=== PATIENT | female | born 1970 | race Caucasian/White ===

== ENCOUNTER 2021-06-01 10:42 | Day surgery (SDC) | payer MEDICAID ==
[2021-05-31 12:16] LABS: COVID AG,FIA SOURCE NASOPHARYNGEAL
[~2021-06-01] VITALS: Ht 152.4 cm; Wt 49.5 kg
[~2021-06-01 10:42] MED LIST: LISI-893 PO; METF-1211 PO; SODIUM CHLORIDE 0.9% 1,000 ML ONE
[2021-06-01] MEDS ORDERED: SODIUM CHLORIDE 0.9% 1,000 ML IV ONE (11:00)
[2021-06-01 12:06] LABS: GLUCOMETER DEV NAME(LOC) SDS.; GLUCOSE,POINT OF CARE 152 MG/DL (70-110)
== END 2021-06-01 14:30 | disposition home or self-care (01) ==
LOC: SURGERY 10:42
PROVIDERS: ATTEND Internal Medicine Gastroenterology
DX: K62.5 Hemorrhage of anus and rectum (principal); K64.8 Other hemorrhoids; K29.50 Unspecified chronic gastritis without bleeding; D13.0 Benign neoplasm of esophagus; Z79.899 Other long term (current) drug therapy; Z98.890 Other specified postprocedural states; Z98.51 Tubal ligation status
CPT/HCPCS: 45378; 43239; 82962; 84703; 87426; C1769; C9803; J7030; 88305; 88312; 88313